=== PATIENT | male | born 1940 | race Two or more races ===

== ENCOUNTER 2019-05-15 11:01 | Inpatient (IN) | payer OTHER ==
[~2019-05-15] VITALS: Ht 172.7 cm; Wt 72.6 kg
[~2019-05-15 11:01] MED LIST: ATORVASTATIN CA10 MG PO; AZOPT5 ML OP; FLOVENT HFA10.6 GM IH; INTESTINEX680 MG PO; LATANOPROST2.5 ML OP; LOSARTAN-HCTZ1 EAC1 PO; NORVASC5 MG PO; OMEPRAZOLE20 MG PO; PERCOCET 5/3251 TAB PO; PROTONIX40 MG PO; SINGULAIR10 MG PO; STIOLTO RESPIMAT4 GM IH; TAMS0.4C PO; XOPENEX0.63 MG/3 IH
== END 2019-05-26 15:28 | disposition home or self-care (01) | DRG 190 ==
LOC: ER 11:01 → SEC-K 14:10 → MEDJ 14:10
PROVIDERS: ADMIT Internal Medicine
PROC: 3E0F7GC Introduction of Other Therapeutic Substance into Respiratory Tract, Via Natural or Artificial Opening (ICD-10-PCS; 2019-05-15)
PROC: 4A033R1 Measurement of Arterial Saturation, Peripheral, Percutaneous Approach (ICD-10-PCS; 2019-05-15)
PROC: BB24ZZZ Computerized Tomography (CT Scan) of Bilateral Lungs (ICD-10-PCS; principal; 2019-05-17)
DX: J44.1 Chronic obstructive pulmonary disease with (acute) exacerbation (principal); J18.1 Lobar pneumonia, unspecified organism; A41.9 Sepsis, unspecified organism; B37.1 Pulmonary candidiasis; I27.0 Primary pulmonary hypertension; J45.30 Mild persistent asthma, uncomplicated; E03.8 Other specified hypothyroidism; D72.828 Other elevated white blood cell count; B95.62 Methicillin resistant Staphylococcus aureus infection as the cause of diseases classified elsewhere; Z85.038 Personal history of other malignant neoplasm of large intestine; Z85.46 Personal history of malignant neoplasm of prostate; Z08 Encounter for follow-up examination after completed treatment for malignant neoplasm

== ENCOUNTER 2019-07-12 10:48 | Outpatient (CLI) | payer OTHER | END 2019-07-12 10:50 | disposition home or self-care (01) | LOC: TOM 10:48 | DX: J43.2 Centrilobular emphysema (principal); R06.2 Wheezing ==

== ENCOUNTER → 2019-12-08 | Outpatient (CLI) | payer OTHER | END | disposition home or self-care (01) | LOC: TOM 15:27 | DX: J43.2 Centrilobular emphysema (principal); R06.02 Shortness of breath ==

== ENCOUNTER 2021-09-18 19:30 | Inpatient (IN) | payer OTHER ==
[~2021-09-18] VITALS: Ht 172.7 cm; Wt 74.8 kg
[2021-10-02] MEDS ORDERED: STIOLTO RESPIMAT4 GM IH (11:15)
[2021-10-02] MEDS ORDERED: ATORVASTATIN CA10 MG PO (11:16)
[2021-10-02] MEDS ORDERED: TAMS0.4C PO (11:16)
[2021-10-02] MEDS ORDERED: GABAPENTIN300 MG PO (11:17)
[2021-10-02] MEDS ORDERED: FLOVENT HFA10.6 GM IH (11:20)
[2021-10-02] MEDS ORDERED: POLY119PG PO (11:21)
[2021-10-02] MEDS ORDERED: INTESTINEX680 M1 PO (11:23)
[2021-10-02] MEDS ORDERED: SULFAMETHOXAZO1 EACH PO (11:23)
[2021-10-03] MEDS ORDERED: MUPIROCIN1 G1 TOP (13:53)
== END 2021-10-02 14:14 | disposition home or self-care (01) | DRG 190 ==
LOC: ER 19:30 → MEDJ 09-19 10:45
PROVIDERS: ADMIT Internal Medicine; ATTEND Internal Medicine
PROC: 4A033R1 Measurement of Arterial Saturation, Peripheral, Percutaneous Approach (ICD-10-PCS; principal; 2021-09-19)
PROC: 4A12X4Z Monitoring of Cardiac Electrical Activity, External Approach (ICD-10-PCS; 2021-09-19)
PROC: 3E0F7SF Introduction of Other Gas into Respiratory Tract, Via Natural or Artificial Opening (ICD-10-PCS; 2021-09-19)
DX: J43.9 Emphysema, unspecified (principal); J18.9 Pneumonia, unspecified organism; E87.1 Hypo-osmolality and hyponatremia; Z20.822 Contact with and (suspected) exposure to COVID-19; R09.02 Hypoxemia; E86.0 Dehydration; I10 Essential (primary) hypertension; K59.00 Constipation, unspecified

== ENCOUNTER 2021-10-03 13:25 | Emergency (ER) | payer OTHER ==
[~2021-10-03] VITALS: Ht 172.7 cm; Wt 72.6 kg
[~2021-10-03 13:25] MED LIST changes: +GABAPENTIN300 MG PO; +INTESTINEX680 M1 PO; +POLY119PG PO; +SULFAMETHOXAZO1 EACH PO
[2021-10-03] MEDS ORDERED: MUPIROCIN1 G1 TOP (13:53)
== END 2021-10-03 14:00 | disposition home or self-care (01) ==
LOC: ER 13:25
DX: R23.8 Other skin changes (principal); R60.0 Localized edema

== ENCOUNTER 2021-12-05 13:52 | Outpatient (CLI) | payer OTHER ==
[~2021-12-05 13:52] MED LIST changes: +MUPIROCIN1 G1 TOP
== END 2021-12-05 14:02 | disposition home or self-care (01) ==
LOC: TOM 13:52
PROVIDERS: ATTEND Internal Medicine Pulmonary Disease
DX: J15.8 Pneumonia due to other specified bacteria (principal); J47.9 Bronchiectasis, uncomplicated; J43.2 Centrilobular emphysema